=== PATIENT | female | born 1980 | race Two or more races ===

== ENCOUNTER 2025-08-23 16:00 | Emergency (ER) | payer OTHER ==
[~2025-08-23] VITALS: Ht 167.6 cm; Wt 74.8 kg
[2025-08-23] MEDS ORDERED: METFORMIN HCL500 M3 PO (17:03)
[2025-08-23] MEDS ORDERED: LOTENSIN20 MG PO (17:04)
[2025-08-23] MEDS ORDERED: ATORVASTATIN CA10 MG PO (17:04)
[2025-08-23] MEDS ORDERED: ELIQUIS2.5 MG PO (17:04)
[2025-08-23 19:21] LABS: BASO % 0.5 % (0.1-1.2); EOS # 0.28 (0.04-0.54); EOS % 3.3 % (0.7-7.0); LYMPH # 2.96 (1.18-3.74); LYMPH % 34.9 % (19.3-53.1); MEAN PLATELET VOLUME 9.50 fl (9.4-12.4); MONO # 0.50 (0.24-0.82); MONO % 5.9 % (4.7-12.5); NEUT # 4.68 (1.56-6.13); NEUT % 55.2 % (34.0-71.1); RED CELL DISTRIBUTION WIDTH 11.9 % (11.6-14.4)
[2025-08-23 19:40] LABS: INR 0.99
[2025-08-23 19:51] LABS: ALT/SGPT 37.0 U/L (12-78); AST/SGOT 26.0 U/L (15-37); BILIRUBIN TOTAL 0.37 mg/dL (0.3-1.2); BUN CREA RATIO 23.0 (7.0-25.0); CREATININE SERUM 0.69 mg/dL (0.55-1.02); GFR 91.19; GLOBULINA 3.6 G/DL (2.4-3.5); GLUCOSE FASTING 110.0 mg/dL (65-100); OSMOLALITY SERUM 281.0 MOSM/KG (275-295)
[2025-08-23 19:55] LABS: URINE APPEARANCE Clear; URINE BILIRRUBIN Negative (NEGATIVE); URINE BLOOD Negative; URINE COLOR Yellow; URINE GLUCOSE Negative (NEGATIVE); URINE KETONE Negative (NEGATIVE); URINE LEUKOCYTE Small; URINE NITRATE Negative; URINE PROTEIN Negative (NEGATIVE); URINE UROBILINOGEN 0.2 E.U./dl
[2025-08-23 20:00] LABS: URINE BACTERIA 682.7 uL (0.0-1933); URINE EPITHELIAL CELLS 16.4 uL (0.0-38.8); URINE RBC 4.5 uL (0.0-20.8); URINE WBC 31.0 uL (0.0-23.2)
[2025-08-23 20:02] LABS: URINE CAST 0.00 uL (0.0-1.40)
[2025-08-23 20:03] LABS: D DIMER < 0.19 MG/L
[2025-08-24] MEDS ORDERED: ENOXAPARIN SODIUM 80 MG/0.8 ML SYRINGE SUBCUTANEO STA (01:19)
[2025-08-24] MEDS ORDERED: 0.9 % SODIUM CHLORIDE 1,000 ML IV SCH (01:30)
[2025-08-24] MEDS ORDERED: KETOROLAC TROMETHAMINE 10 MG TABLET PO ONE ×2 (03:15→03:17)
[2025-08-24] MEDS ORDERED: KETOROLAC TROMETHAMINE 60 MG VIAL IM STA (05:22)
== END 2025-08-24 11:53 | disposition home or self-care (01) ==
LOC: ER 16:00
PROVIDERS: Physician Assistant Medical
DX: M79.605 Pain in left leg (principal); Z86.718 Personal history of other venous thrombosis and embolism; E78.00 Pure hypercholesterolemia, unspecified; I10 Essential (primary) hypertension; I73.89 Other specified peripheral vascular diseases; E11.9 Type 2 diabetes mellitus without complications; Z79.84 Long term (current) use of oral hypoglycemic drugs